=== PATIENT | female | born 1995 | race Caucasian/White ===

== ENCOUNTER 2018-06-15 07:17 | Inpatient (IN) ==
[2018-06-20] MEDS ORDERED: HYDROCODONE/APAP 5mg/325mg TABLET PO PRN (16:09)
[2018-06-20] MEDS ORDERED: SALINE FLUSH 10ml SYRINGE IV PRN ×2 (16:09)
[2018-06-20] MEDS ORDERED: ACETAMINOPHEN 500 MG TABLET PO PRN (16:09)
[2018-06-20] MEDS ORDERED: MAG-AL + SIM ORAL LIQUID 30ml PO PRN (16:09)
[2018-06-20] MEDS ORDERED: ZOLPIDEM 5 MG TABLET PO PRN (16:09)
[2018-06-20] MEDS ORDERED: METHYLERGONOVINE 0.2 MG/ML INJECTION IM PRN (16:09)
[2018-06-20] MEDS ORDERED: CALCIUM CARBONATE Chewable 500mg TABLET PO PRN (16:09)
[2018-06-20] MEDS ORDERED: CARBOPROST 250 MCG/ML INJECTION IM PRN (16:09)
--- OUTSIDE RECORDS SUMMARY | 2018-06-20 16:11 | External Medical Summary | Continuity of Care Document ---
:1995 Author Organization [facility] Address [address] [place], [place] [id number] Phone Care Team Providers Name Role Phone Kaylah Ruiz DO Unavailable Unavailable Allergies, Adverse Reactions, Alerts Substance Reaction Severity Status tetracycline Unknown Active Medications Medication Instructions Dosage Effective Dates Status Comments (start - stop) Vitamin take 1 tablet by Not Available - Active tablet oral route every day Problems Condition Effective Dates (start - stop) Clinical Status Encntr for suprvsn of normal first - preg, third trimester 37 weeks gestation of - Encntr for suprvsn of normal first - preg, second trimester 15 weeks gestation of - Partial Placenta Previa Nos Or W/out - Hemorrhage, Unspec Trimester Encntr for suprvsn of normal first - preg, second trimester 19 weeks gestation of - Partial Placenta Previa Nos Or W/out - Hemorrhage, Second Trimester 23 weeks gestation of - Streptococcus B carrier state - complicating Encntr for suprvsn of normal first - preg, third trimester 39 weeks gestation of - Streptococcus B carrier state - complicating Encntr for suprvsn of normal first - preg, third trimester 35 weeks gestation of - Streptococcus B carrier state - complicating Encntr for suprvsn of normal first - preg, third trimester 36 weeks gestation of - Streptococcus B carrier state - complicating Encntr for suprvsn of normal first - preg, third trimester 38 weeks gestation of - Encntr screen for infections w sexl - mode of transmiss Encounter for screening for oth - infec/parastc diseases Encntr for suprvsn of normal first - preg, first trimester Encounter for screening of - mother 11 weeks gestation of - Encntr for suprvsn of normal first - preg, second trimester 19 weeks gestation of - Encntr for suprvsn of normal first - preg, second trimester 27 weeks gestation of - Encntr for suprvsn of normal first - preg, second trimester 23 weeks gestation of - Encntr for suprvsn of normal first - preg, third trimester 31 weeks gestation of - Encntr for suprvsn of normal first - preg, third trimester 29 weeks gestation of - Encntr for suprvsn of normal first - preg, third trimester 33 weeks gestation of - Encntr for suprvsn of normal preg, unsp, first trimester Procedures Procedure Date OB Visit No Charge Results Test Name Date and Time Measure Units Reference Range Abnormal Flag Comments Unknown Advance Directives Directive Yes / No Effective Date File Name Unknown Encounters Encounter Practice Location Reason(s) Diagnoses Date Provider Care Team Description For Visit Members Associates Kumar Streptococcus B Sobbing Referring In Womens carrier state 9-201 Jones. Provider: Darryl HALL, complicating [address] pregnancyEncntr [facility] [place], 1522, for suprvsn of Center [address], [address], [place], preg, third [address], [id number], [email or web address] weeks 120, [place], [place] gestation of [place], [address]. tel:+214 [place], tel:+ [phone], [id number] [place]. tel: [phone] Associates Kumar Streptococcus B May-1 Sobbing Referring In Womens carrier state 2 Jones. Provider: Darryl HALL, complicating 8 [address] Box [facility], 1522, for suprvsn of Center [address], normal [address], St [place], preg, third [address], [id number], weeks 120, [place], [place], [address]. tel:+316 [place], tel:[phone], [id number] [place]. tel: [phone] Associates Kumar Encntr for May-0 Sobbing Referring In Womens suprvsn of [place] 5 Jones. Provider: Darryl HALL, first preg, third 8 [address] Box [email or web address] weeks Medical [facility], 1522, gestation of Center [address], [address], [place], [address], [id number], 120, [place], [place], [address]. tel:+ [place], tel:[phone], [id number] [place]. tel: [phone] Associates Kumar Streptococcus B Geovanny-2 Sobbing Referring In Womens carrier state Jones. Provider: Darryl HALL, complicating [address] Box [facility], 1522, for suprvsn of Center [address], normal [address], St [place], preg, third [address], [id number], [id number] weeks 120, [place], [place], [address]. tel:+316 [place], tel:[phone], [id number] [place]. tel: [phone] Associates Kumar Streptococcus B Apr-2 Sobbing Referring In Womens carrier state Jones. Provider: Darryl HALL, complicating 8 [address] [facility], for supr[facility]n of Center [address], normal [address], St [place], preg, third [address], [id number], [email or web address] weeks 120, [place], [place] gestation of [place], [address]. tel: [place], tel:+ [phone], [id number] [place]. tel:[phone] Ailyn [place] Encntr for Geovanny-0 Sobbing Referring In Womens suprvsn of normal 7-201 Louis. Provider: Darryl HALL, first preg, third 8 [address] PO Box [email or web address] weeks [facility], 1522, gestation of [place] [address], [facility], [address], [id number], 120, [place], [place], [address]. tel:+ [place], tel:+ [phone], [id number] [place]. tel: [phone] Ailyn [place] Encntr for May-2 Sobbing Referring In Womens suprvsn of normal 4-201 Louis. Provider: Darryl HALL, first preg, third 8 [address] PO Box weeks [facility], 1522, gestation of [place] [address], [facility], [facility], [address], [id number], 120, [place], [place], [address]. tel: [place], tel:+ [phone], [id number] [place]. tel: [phone] Ailyn [place] Encntr for May-1 Sobbing Referring In Womens suprvsn of normal 0-201 Louis. Provider: Darryl HALL, first preg, third 8 [address] PO Box [email or web address] weeks [facility], 1522, gestation of [place] [address], [facility], [facility], [address], [id number], 120, [place], [place], [place], [address]. tel:+ [place], tel:[phone], [id number] [place]. tel: [phone] Ailyn [place] Encntr for Apr-2 Sobbing Referring In Womens suprvsn of normal 6-201 Louis. Provider: Darryl HALL, first preg, 8 [address] PO Box second [facility], 1522, [email or web address] weeks Center [address], gestation of Drive [place], [address], [id number], 120, [place], [place], [address]. tel: [place], tel: [phone], [id number] [place]. tel: [phone] Associates Kumar Ontiverosntr for Mar-2 Sobbing Referring In Womens suprvsn of normal 9-201 Louis. Provider: Darryl HALL, first preg, 8 [address] PO Box [facility], 1522, [email or web address] weeks Center [address], gestation of [facility] [place], [address], [id number], 120, [place], [place], [address]. tel: [place], tel: [phone], [id number] [place]. tel: [phone] Associates Kumar Partial Placenta Mar-2 Sobbing Referring In Womens Ultrasound Previa Nos Or 9-201 Louis. Provider: Darryl HALL, W/out Hemorrhage, 8 [address] PO Box [facility], 1522, [id number] weeks Center [address], gestation of [facility] [place], [address], [id number], 120, [place], [place], [address]. tel: [place], tel: [phone], [id number] [place]. tel: [phone] Associates Kumar Partial Placenta Mar-0 Sobbing Referring In Womens Previa Nos Or 1-201 Louis. Provider: Darryl HALL, W/out Hemorrhage, 8 [address] PO Box [facility], 1522, TrimesterEncntr Center [address], for suprvsn of [facility] [place], normal first [address], [id number], preg, second 120, [place], [place] [id number] weeks [place], [address]. tel: gestation of [place], tel: [phone], [id number] [place]. tel: [phone] Associates Kumar Encntr for Mar-0 Sobbing Referring In Womens Ultrasound suprvsn of normal 1-201 Jones. Provider: Darryl HALL, first preg, 8 700 [facility], 1522, [email or web address] weeks Center [address], gestation of [facility], [facility], [address], , 120, [address], [place], [address]. tel: [place], tel: [phone], [id number] [place]. tel: [phone] Ailyn [place] Encntr for Feb-0 Sobbing Referring In Womens suprvsn of normal 1-201 Jones. Provider: Darryl HALL, first preg, 8 700 [facility], 1522, [id number] weeks Center [address], gestation of [facility], [place], [address], , 120, [address], [place], [address]. tel: [place], tel: [phone], [id number] [place]. tel: [phone] Ailyn [place] Encntr screen for Eladio-0 Sobbing Referring In Womens infections w sexl 4-201 Jones. Provider: Darryl HALL, mode of 8 700 [facility] transmissEncounte [facility], 1522, r for screening Center [address], for oth [facility], [place], infec/parastc [address], , diseasesEncntr 120, [address], [place], [address]. tel: normal first [place], tel: preg, first [phone], [id number] trimesterEncounte [place]. r for tel: screening of [id number] weeks gestation of Associates Kumar Encntr for Dec-0 Augustus Referring In Womens suprvsn of normal 4-201 Shante. Provider: Darryl HALL, preg, unsp, first 7 700 [facility] Box [facility], 1522, Center [address], [facility] [place], 120, [address], , [facility], [place], [address]. tel: [phone] tel: , [place]. [id number] tel: [phone] Family History Family Member Diagnosis Age At Onset Father Hypertension Paternal Grandmother Breast Cancer Paternal Grandfather Stroke Mother Hypertension Immunizations Vaccine Date Status Comments Tdap completed Source: New Immunization Record Influenza, injectable, completed Source: Other Provider quadrivalent, preservative free, 3 yrs or older Payers Payer name Insurance type Covered green party ID Authorization(s) [facility] [id number] [facility] [id number] Medicaid [facility] [id number] Social History Type Description Quantity Date Captured Alcohol Use Details No Caffeine Use Details Unknown Tobacco Use Status Smoking Status Former smoker Vital Signs Date / Height Weight BMI Pulse Blood Temperature Respiratory Body Head BMI Time: Rate Pressure Rate Surface Circumference percentile Area 193.70 32.2 138/86 2018 lbs 3 mm[Hg] 11:38 kg/m AM eter (2) Chief Complaint And Reason For Visit Unknown Chief Complaint And Reason For Visit Reason For Referral Reason For Referral Unknown Plan Of Care Date Type Action Status Appointment Maria Luisa Mitchell BOOKED Future Order: Radiology Order Ultrasound, OB Limited ([id number]) Ordered Future Order: Radiology Order Complete OB Ultrasound > 14 Weeks Ordered ([id number]) Date Type Problem Goal Intervention Status Start Date Unknown. History Of Present Illness Encounter Date Complaint History Of Present Illness This patient has no known history of present illness Functional Status Encounter Date Functional Assessment Cognitive Assessment Unknown Medications Administered Medication Instructions Dosage Effective Dates (start - stop) Status Comments Drug Treatment Unknown Instructions Date Instruction Additional Information HIV and other routine tests risk factors identified by history anticipated course of care nutrition and weight gain counseling, special diet toxoplasmosis precautions (cats / raw meat) sexual activity exercise indications for ultrasound influenza vaccine environmental / work hazards travel tobacco (ask, advise, assess, assist and arrange) alcohol illicit / recreational drugs use of any medications (including supplements, vitamins, herbs, OTC drugs) smoking counseling domestic violence seat belt use childbirth classes / hospital facilities hospital registration genetic testing new ob handbook risks
--- OUTSIDE RECORDS SUMMARY | 2018-06-20 16:11 | External Medical Summary | Continuity of Care Document ---
:1996 Author Organization [facility] Address [address] [place], [place] [id number] Phone Care Team Providers Name Role Phone [...] Second Trimester 23 weeks gestation of - Encntr screen for [...] Provider Care Team Description For Visit Members Ailyn Turner for Mar-2 Sobbing Referring In Womens suprvsn of normal [place]. Provider: Darryl HALL, first preg, 8 [address] PO Box [facility], 1522, [id number] weeks Center [address] [place], gestation of [facility] [place], [address], [id number], 120, [place], [place], [address]. tel: [place], tel:[phone], [id number] [place]. tel:[phone] Associates Kumar Partial Placenta Mar-2 Sobbing Referring In Womens Ultrasound Previa Nos Or [place]. Provider: Darryl HALL, W/out Hemorrhage, 8 [address] PO Box [facility], 1522, [id number] weeks Center [address] [place] [place], gestation of [facility] [place], [address], [id number], 120, [place], [place], [address]. tel: [place], tel: [phone], [id number] [place]. tel: [phone] Ailyn [place] Partial Placenta Mar-0 Sobbing Referring In Womens Previa Nos Or Elwell. Provider: Darryl HALL, W/out Hemorrhage, 8 [address] PO Box Count Includes [facility] K, 1522, TrimesterEncntr Center [address] [place] [place], for suprvsn of [facility], normal first [address], [id number], preg, second 120, [place], [place], [address]. tel: gestation of [place], tel: [phone], [phone] [place]. tel: [phone] Ailyn [place] Encntbrennen for Mar-0 Sobbing Referring In Womens Ultrasound suprvsn of normal [place]. Provider: Darryl HALL, first preg, 8 [address] PO Box second [facility] K, 1522, [email or web address] weeks Center [address] [place] [place], gestation of [facility], [address], , 120, [place], [place], [address]. tel: [place], tel: [phone], [id number] [place]. tel: [phone] Ailyn [place] Encntr for Feb-0 Sobbing Referring In Womens suprvsn of normal 1-201 [place]. Provider: Darryl HALL, first preg, 8 [address] PO Box second Medical [facility], 1522, [id number] weeks Center [address] [place] [place], gestation of [facility], [facility], [address], , 120, [place], [place], [address]. tel: [place], tel: [phone], [id number] [place]. tel:[phone] Ailyn [place] Encntr screen for Eladio-0 Sobbing Referring In Womens infections w sexl 4-201 [place]. Provider: Darryl HALL, mode of 8 [address] Box transmissEncounte [facility], 1522, r for screening Center [address] [place], for oth [facility], [place], infec/parastc [address], , diseasesEncntr 120, [place], [place], [address]. tel: normal first [place], tel: preg, first [phone], [id number] trimesterEncounte [place]. r for tel: screening of [phone] [id number] weeks gestation of Associates Kumar Ontiverosntr for Dec-0 Augustus Referring In Womens suprvsn of normal 4-201 Shante. Provider: Darryl HALL, preg, unsp, first 7 [address] PO Box trimester [facility], 1522, Center [address], [facility], [facility], 120, [address], [id number], [place], [place], [address]. tel: [phone] tel: , [place]. [id number] tel:[phone] Family History Family Member Diagnosis Age At Onset Father Hypertension Paternal Grandmother Breast Cancer Paternal Grandfather Stroke Mother Hypertension Immunizations Vaccine Date Status Comments Influenza, injectable, quadrivalent, completed Source: Other Provider preservative free, 3 yrs or older Payers Payer name Insurance type Covered green party ID Authorization(s) [place] BL [id number] Social History Type Description Quantity Date Captured Alcohol Use Details No Caffeine Use Details Unknown Tobacco Use Status Smoking Status Former smoker Vital Signs Date / Height Weight BMI Pulse Blood Temperature Respiratory Body Head BMI Time: Rate Pressure Rate Surface Circumference percentile Area 183.70 30.5 121/2018 lbs 7 mm[Hg] 2:59 kg/m PM eter (2) Chief Complaint And Reason For Visit Unknown Chief Complaint And Reason For Visit Reason For Referral Reason For Referral Unknown Plan Of Care Date Type Action Status Appointment Maria Luisa Goodman BOOKED Future Order: Radiology Order Ultrasound, OB Limited ([id number]) Ordered Future Order: Radiology Order Complete OB Ultrasound > 14 Weeks Ordered ([id number]) Date Type Problem Goal Intervention Status Start [...]
--- OUTSIDE RECORDS SUMMARY | 2018-06-20 16:11 | External Medical Summary | Continuity of Care Document ---
:1996 Author Organization [email or web address] Address [address] [place], [place] [phone] Phone Care Team Providers Name Role Phone [...] preg, unsp, first trimester Procedures Procedure Date Immuniz admnin, 1 vac, sngl/combo 19 Yrs + TDAP VACCINE >7 IM OB Visit No Charge Automated hemogram (CBC) Glucose test Venpnctr fngr/heel/ear stick routne Results Test Name Date and Time Measure Units Reference Range Abnormal Flag Comments Panel Description: CBC With Differential/Platelet WBC 14:36:00 10.7 x10E3/uL 3.4-10.8 RBC 14:36:00 4.19 x10E6/uL 3.77-5.28 Hemoglobin 14:36:00 12.1 g/dL 11.1-15.9 Hematocrit 14:36:00 35.8 % 34.0-46.6 MCV 14:36:00 85 fL 79-97 MCH 14:36:00 28.9 pg 26.6-33.0 MCHC 14:36:00 33.8 g/dL 31.5-35.7 RDW 14:36:00 13.0 % 12.3-15.4 Platelets 14:36:00 256 x10E3/uL 150-379 Neutrophils 14:36:00 69 % Not Estab. Lymphs 14:36:00 22 % Not Estab. Monocytes 14:36:00 6 % Not Estab. Eos 14:36:00 2 % Not Estab. Basos 14:36:00 0 % Not Estab. Immature Cells 14:36:00 Neutrophils (Absolute) 14:36:00 7.5 x10E3/uL 1.4-7.0 H Lymphs (Absolute) 14:36:00 2.3 x10E3/uL 0.7-3.1 Monocytes(Absolute) 14:36:00 0.6 x10E3/uL 0.1-0.9 Eos (Absolute) 14:36:00 0.2 x10E3/uL 0.0-0.4 Baso (Absolute) 14:36:00 0.0 x10E3/uL 0.0-0.2 Immature Granulocytes 14:36:00 1 % Not Estab. Immature Grans (Abs) 14:36:00 0.1 x10E3/uL 0.0-0.1 NRBC 14:36:00 Hematology Comments: 14:36:00 Panel Description: Glucose [Mass/volume] in Serum or Plasma --1 hour post 50 g glucose PO Gestational Diabetes Screen 14:36:00 101 mg/dL 65-135 Advance Directives Directive Yes / No Effective Date File Name Unknown Encounters Encounter Practice Location Reason(s) Diagnoses Date Provider Care Team Description For Visit Members Ailyn [place] Encntr for Sobbing Referring In Womens suprvsn of normal 0-201 Louis. Provider: Darryl HALL, first preg, third 8 [address] Box [id number] weeks [facility], 1522, gestation of [place] [address], [address], [facility], [address], , 120, [place], [place], [address]. tel: [place], tel: [phone], [id number] [place]. tel: [phone] Ailyn [place] Encntr for Sobbing Referring In Womens suprvsn of normal 6-201 Louis. Provider: Darryl HALL, first preg, 8 [address] PO Box second [facility], 1522, [id number] weeks Center [address], gestation of Drive, [facility], [address], [id number], 120, [place], [place], [address]. tel: [place], tel: [phone], [id number] [place]. tel: [phone] Associates Kumar Encntr for Mar-2 Sobbing Referring In Womens suprvsn of normal [place]. Provider: Darryl HALL, first preg, 8 [address] PO Box [facility] , 1522, [email or web address] weeks Center [address], gestation of [place], [address], [id number], 120, [place], [place], [address]. tel: [place], tel:[phone], [id number] [place]. tel: [phone] Associates Kumar Partial Placenta Mar-2 Sobbing Referring In Womens Ultrasound Previa Nos Or Louis. Provider: Darryl HALL, W/out Hemorrhage, 8 [address] PO Box [facility] , 1522, [id number] weeks Center [address], gestation of [place], [address], [id number], 120, [place], [place], [address]. tel: [place], tel:[phone], [id number] [place]. tel: [phone] Associates Kumar Partial Placenta Mar-0 Sobbing Referring In Womens Previa Nos Or Louis. Provider: Darryl HALL, W/out Hemorrhage, 8 [address] PO Box [facility] , 1522, TrimesterEncntr Center [address], for suprvsn of Drive, [place], normal first [address], [id number], preg, second 120, [place], [place] [id number] [place], [address]. tel: gestation of [place], tel:[phone], [id number] [place]. tel: [phone] Associates Kumar Encntr for Mar-0 Sobbing Referring In Womens Ultrasound suprvsn of normal [place]. Provider: Darryl HALL, first preg, 8 [address] PO Box [facility] , 1522, [id number] weeks Center [address], gestation of [place], [address], [id number], 120, [place], [place], [address]. tel: [place], tel: [phone], [phone] [place]. tel: [phone] Ailyn [place] Encntr for Feb-0 Sobbing Referring In Womens suprvsn of normal 1-201 [place]. Provider: Darryl HALL, first preg, 8 [address] PO Box second Medical [facility], 1522, [id number] weeks Center [address], gestation of [facility], [facility], [address], , 120, [place], [place], [address]. tel: [place], tel:[phone], [id number] [place]. tel: [phone] Ailyn [place] Encjeremiah screen for Eladio-0 Sobbing Referring In Womens infections w sexl 4-201 [place]. Provider: Darryl HALL, mode of 8 [address] Box transmissEncounte [facility], 1522, r for screening Center [address], for oth Drive, [place], infec/parastc [address], , diseasesEncntr 120, [place], [place], [address]. tel: normal first [place], tel: preg, first [phone], [id number] trimesterEncounte [place]. r for tel: screening of [id number] weeks gestation of Associates Kumar Turner for Dec-0 Augustus Referring In Womens suprvsn of normal 4-201 [place]. Provider: Darryl HALL, preg, unsp, first 7 [address] Box trimester Medical [facility], 1522, Center [address], [facility] St [place], 120, [address], [id number], [place], [place], [address]. tel:[phone] tel: , . [id number] tel: [phone] Family History Family Member Diagnosis Age At Onset Father Hypertension Paternal Grandmother Breast Cancer Paternal Grandfather Stroke Mother Hypertension Immunizations Vaccine Date Status Comments Tdap completed Source: New Immunization Record Influenza, injectable, completed Source: Other Provider quadrivalent, preservative free, 3 yrs or older Payers Payer name Insurance type Covered democrat ID Authorization(s) [facility] [id number] [facility] [id number] Social History Type Description Quantity Date Captured Alcohol Use Details No Caffeine Use Details Unknown Tobacco Use Status Smoking Status Former smoker Vital Signs Date / Height Weight BMI Pulse Blood Temperature Respiratory Body Head BMI Time: Rate Pressure Rate Surface Circumference percentile Area 186.10 30.9 -2018 lbs 6 1:36 kg/m PM eter (2) 186.10 30.9 133/90 -2018 lbs 6 mm[Hg] 1:37 kg/m PM eter (2) Chief Complaint And Reason For Visit Unknown Chief Complaint And Reason For Visit Reason For Referral Reason For Referral Unknown Plan Of Care Date Type Action Status Appointment Maria Luisa Goodman BOOKED Future Order: Radiology Order Ultrasound, OB Limited ([id number]) Ordered Future Order: Radiology Order Complete OB Ultrasound > 14 Weeks Ordered ([id number]) Date Type Problem Goal Intervention Status Start [...]
--- OUTSIDE RECORDS SUMMARY | 2018-06-20 16:11 | External Medical Summary | Continuity of Care Document ---
:1996 Author Organization [facility] [employer] [facility] Address [address] [place], [place] [id number] Phone Care Team Providers Name Role Phone Kaylah Ruiz DO Unavailable Unavailable Allergies, Adverse Reactions, Alerts Substance Reaction Severity Status tetracycline Unknown Active Medications Medication Instructions Dosage Effective Dates Status Comments (start - stop) Vitamin take 1 tablet by Not Available - Active tablet oral route every day Problems Condition Effective Dates (start - stop) Clinical Status Streptococcus B carrier state - complicating Encntr for suprvsn of normal first - preg, third trimester 36 weeks gestation of - Encntr for suprvsn [...] Care Team Description For Visit Members Ailyn Verde Sobbing Referring In Womens [facility] 2 Dolphin. Provider: Darryl HALL, complicating 8 [address] PO Box pregnancyEncntr Medical [facility] [place], 1522, for suprvsn of Center [address] [place], normal [address], [place], preg, third [address], [id number], [email or web address] weeks 120, [place], [place] gestation of [place], [address]. tel:+ [place], tel:+ [phone], [id number] [place]. tel: [phone] Ailyn [place] Encntr for Sobbing Referring In Womens suprvsn of normal 5-201 Dolphin. Provider: Darryl HALL, first preg, third 8 700 [address] PO Box [email or web address] weeks [facility], 1522, gestation of Center [address] [place], [address], St [place], [address], [id number], 120, [place], [place], [address]. tel:+ [place], tel:+ [phone], [id number] [place]. tel: [phone] Associates Kumar Streptococcus B Geovanny-2 Sobbing Referring In Womens carrier state 8-201 Dolphin. Provider: Darryl HALL, complicating 8 [address] PO Box pregnancyEncntr [facility], 1522, for suprvsn of Center [address] [place], normal first [address], St [place], preg, third Suite [address], [id number], [email or web address] weeks 120, [place], [place], [address]. tel: [place], tel:[phone], [id number] [place]. tel: [phone] Associates Kumar Streptococcus B Geovanny-2 Sobbing Referring In Womens carrier [facility] 1-201 Dolphin. Provider: Darryl HALL, complicating 8 [address] PO Box pregnancyEncntr [facility], 1522, for suprvsn of Center [address] [place], normal first [address], St [place], preg, third [address], , [email or web address] weeks 120, [place], [place], [address]. tel:+ [place], tel:[phone], [id number] [place]. tel: [phone] Associates Kumar Turner for Geovanny-0 Sobbing Referring In Womens suprvsn of normal 7-201 Dolphin. Provider: Darryl HALL, first preg, third 8 700 [address] PO Box [email or web address] weeks [facility], 1522, gestation of Center [address], [address], St [place], [address], [id number], 120, [place], [place], [address]. tel:+ [place], tel:[phone], [id number] [place]. tel: [phone] Ailyn [place] Encntr for May-2 Sobbing Referring In Womens suprvsn of normal 4-201 Louis. Provider: Darryl HALL, first preg, third 8 700 [address] PO Box [id number] weeks [facility], 1522, gestation of Center [address], [address], [place], Suite [address], [id number], 120, [place], [place], [address]. tel: [place], tel: [phone], [id number] [place]. tel: [phone] Ailyn [place] Encntr for May-1 Sobbing Referring In Womens suprvsn of normal 0-201 Louis. Provider: Darryl HALL, first preg, third 8 700 [address] PO Box [email or web address] weeks [facility], 1522, gestation of Center [address], [address], [place], [address], [id number], 120, [place], [place], [address]. tel: [place], tel:+ [phone], [id number] [place]. tel: [phone] Ailyn [place] Encntr for Apr-2 Sobbing Referring In Womens suprvsn of normal 6-201 Louis. Provider: Darryl HALL, first preg, 8 700 [address] PO Box [facility], 1522, [email or web address] weeks Center [address], gestation of Drive, [place], Suite [address], [id number], 120, [place], [place], [address]. tel: [place], tel: [phone], [id number] [place]. tel: [phone] Ailyn [place] Encntr for Mar-2 Sobbing Referring In Womens suprvsn of normal 9-201 Louis. Provider: Darryl HALL, first preg, 8 700 [address] PO Box [facility], 1522, weeks Center [address], gestation of Drive, [place], Suite [address], [id number], 120, [place], [place], [address]. tel: [place], tel: [phone], [id number] [place]. tel: [phone] Associates Kumar Partial Placenta Mar-2 Sobbing Referring In Womens Ultrasound Previa Nos Or Dolphin. Provider: Darryl HALL, W/out Hemorrhage, 8 [address] PO Box [facility] 1522, [id number] weeks Center [address], gestation of [place], Suite [address], [id number], 120, [place], [place], [address]. tel: [place], tel:[phone], [id number] [place]. tel: [phone] Associates Kumar Partial Placenta Mar-0 Sobbing Referring In Womens Previa Nos Or Dolphin. Provider: Darryl HALL, W/out Hemorrhage, 8 [address] PO Box [facility], 1522, TrimesterEncntr Center [address], for suprvsn of [place], normal first Suite [address], , preg, second 120, [place], [place] [email or web address] [place], [address]. tel: gestation of [place], tel: [phone], [id number] [place]. tel: [phone] Associates Kumar Ontiverosntr for Mar-0 Sobbing Referring In Womens Ultrasound suprvsn of normal Dolphin. Provider: Darryl HALL, first preg, 8 700 [address] PO Box [facility], 1522, [id number] weeks Center [address] [place] [address], gestation of [place], Suite [address], [id number], 120, [place], [place], [address]. tel: [place], tel:[phone], [id number] [place]. tel: [phone] Associates Kumar Encntr for Feb-0 Sobbing Referring In Womens suprvsn of normal Dolphin. Provider: Darryl HALL, first preg, 8 [address] PO Box [facility], 1522, [email or web address] weeks Center [address] [place], gestation of [place], Suite [address], [id number], 120, [place], [place], [address]. tel: [place], tel: [phone], [id number] [place]. tel: [phone] Associates Kumar Turner screen for Eladio-0 Sobbing Referring In Womens infections w sexl 4-201 Louis. Provider: Darryl HALL, mode of 8 [address] PO Box transmissEncounte [facility], 1522, r for screening Center [address], [facility], infec/parastc [address], [id number], diseasesEncntr 120, [facility] [place], [address]. tel: normal first [place], tel: preg, first [phone], [id number] trimesterEncounte [place]. r for tel: screening of [phone] [id number] weeks gestation of Associates Kumar Turner for Dec-0 Augustus Referring In Womens suprvsn of normal 4-201 Shante. Provider: Darryl HALL, nicolás, unsp, first 7 700 [address] PO Box trimester [facility], 1522, Center [address] [place], [facility] St [place], 120, [address], [id number], [place], [facility] [place], [address]. tel: [phone] tel: , [place]. [id number] tel: [phone] Family History Family Member Diagnosis Age At Onset Father Hypertension Paternal Grandmother Breast Cancer Paternal Grandfather Stroke Mother Hypertension Immunizations Vaccine Date Status Comments Tdap completed Source: New Immunization Record Influenza, injectable, completed Source: Other Provider quadrivalent, preservative free, 3 yrs or older Payers Payer name Insurance type Covered democrat ID Authorization(s) [facility] [id number] [facility] [id number] Medicaid [facility] [id number] Social History Type Description Quantity Date Captured Alcohol Use Details No Caffeine Use Details Unknown Tobacco Use Status Smoking Status Former smoker Vital Signs Date / Height Weight BMI Pulse Blood Temperature Respiratory Body Head BMI Time: Rate Pressure Rate Surface Circumference percentile Area 195.40 32.5 125/82 2018 lbs 1 mm[Hg] 4:14 kg/m PM eter (2) 31.9 8 4:04 kg/m PM eter (2) Chief Complaint And Reason For Visit Unknown Chief Complaint And Reason For Visit Reason For Referral Reason For Referral Unknown Plan Of Care Date Type Action Status Future Order: Radiology Order Ultrasound, OB Limited ([id number]) Ordered Future Order: Radiology Order Complete OB Ultrasound > 14 Weeks Ordered ([id number]) Date Type Problem Goal Intervention Status Start [...]
--- OUTSIDE RECORDS SUMMARY | 2018-06-20 16:11 | External Medical Summary | Continuity of Care Document ---
:1996 Author Organization [facility] [facility] Address [address] [place], [place] [id number] Phone Care Team Providers Name Role Phone Kaylah Ruiz DO Unavailable Allergies, Adverse Reactions, Alerts Substance Reaction Severity Status tetracycline Unknown Active Medications Medication Instructions Dosage Effective Dates Status Comments (start - stop) Vitamin take 1 tablet by Not Available - Active tablet oral route every day Problems Condition Effective Dates (start - stop) Clinical Status Partial Placenta Previa Nos Or W/out - Hemorrhage, Unspec Trimester Encntr for suprvsn of normal first - preg, second trimester 19 weeks gestation of - Encntr for suprvsn of normal first - preg, second trimester 15 weeks gestation of - Encntr screen for [...] Team Description For Visit Members Associates Kumar Partial Placenta Mar-0 Sobbing Referring In Womens Previa Nos Or [place]. Provider: Darryl HALL, W/out Hemorrhage, 8 [address] PO Box [facility]22, TrimesterEncntr Center [address] [place], for suprvsn of [facility], [place], normal first Suite [address], [id number], preg, second 120, [place], [place] [email or web address] [place], [address]. tel: gestation of [place], tel: [phone], [id number] [place]. tel: [phone] Associates Kumar Solorzanor for Mar-0 Sobbing Referring In Womens Ultrasound suprvsn of normal [place]. Provider: Darryl HALL, first preg, 8 [address] PO Box second Medical [facility] K, 1522, [id number] weeks Center [address] [place], gestation of [facility] [place], Suite [address], , 120, [place], [place], [address]. tel: [place], tel:[phone], [id number] [place]. tel: [phone] Ailyn Turner for Feb-0 Sobbing Referring In Womens suprvsn of normal [place]. Provider: Darryl HALL, first preg, 8 [address] PO Box second [facility], 1522, [email or web address] weeks Center [address] [place], gestation of [facility] [place], Suite [address], , 120, [place], [place], [address]. tel: [place], tel:[phone], [id number] [place]. tel: [phone] Ailyn Turner screen for Eladio-0 Sobbing Referring In Womens infections w sexl [place]. Provider: Darryl HALL, mode of 8 [address] PO Box transmissEncounte Medical Ruiz K, 1522, r for screening Center [address] [place], for oth [facility], [place], infec/parastc [address], , diseasesEncntr 120, [place], [place], [address]. tel:[phone] normal first [place], tel: preg, first [phone], [id number] trimesterEncounte [place]. r for tel: screening of [id number] weeks gestation of Associates Kumar Encntr for Augustus Referring In Womens suprvsn of normal 4-201 Shante. Provider: Health [place], preg, unsp, first 7 [address] PO Box trimester Medical [facility] K, 1522, Center [address] [place], [address] [place], 120, [address], [id number], [place], [address]. tel: [phone] tel: , [place]. [id number] tel: [phone] Family History Family Member Diagnosis Age At Onset Father Hypertension Paternal Grandmother Breast Cancer Paternal Grandfather Stroke Mother Hypertension Immunizations Vaccine Date Status Comments Influenza, injectable, quadrivalent, completed Source: Other Provider preservative free, 3 yrs or older Payers Payer name Insurance type Covered green party ID Authorization(s) [facility] [id number] Social History Type Description Quantity Date Captured Alcohol Use Details No Caffeine Use Details Unknown Tobacco Use Status Smoking Status Former smoker Vital Signs Date / Height Weight BMI Pulse Blood Temperature Respiratory Body Head BMI Time: Rate Pressure Rate Surface Circumference percentile Area 177.50 29.5 133/85 2018 lbs 3 mm[Hg] 4:21 kg/m PM eter (2) Chief Complaint And Reason For Visit Unknown Chief Complaint And Reason For Visit Reason For Referral Reason For Referral Unknown Plan Of Care Date Type Action Status Appointment Maria Luisa Goodman BOOKED Appointment Maria Luisa Goodman BOOKED Future Order: Radiology Order Complete OB Ultrasound > 14 Weeks Ordered ([id number]) Date Type Problem Goal Intervention Status Start [...]
--- OUTSIDE RECORDS SUMMARY | 2018-06-20 16:11 | External Medical Summary | Continuity of Care Document ---
:1996 Author Organization [facility] [employer] [facility] Address [address] [place], [place] [phone] Phone Care Team Providers Name Role Phone [...] trimester 19 weeks gestation of - Encntr screen for infections w sexl - mode of transmiss Encounter for screening for oth - infec/parastc diseases Encntr for suprvsn of normal first - preg, first trimester Encounter for screening of - mother 11 weeks gestation of - Encntr for suprvsn of normal preg, unsp, first trimester Procedures Procedure Date Ultrasound exam of preg uterus, complete Results Test Name Date and Time Measure Units Reference Range Abnormal Flag Comments Unknown Advance Directives Directive Yes / No Effective Date File Name Unknown Encounters Encounter Practice Location Reason(s) Diagnoses Date Provider Care Team Description For Visit Members Associates Kumar Partial Placenta Mar-0 Sobbing Referring In Womens Previa Nos Or Harris. Provider: Darryl HALL, W/out Hemorrhage, 8 [address] PO Box [facility] 1522, TrimesterEncntr Center [address], for suprvsn of [facility], [place], normal first [address], [id number], preg, second 120, [place], [place], [address]. tel:+ gestation of [place], tel:[phone], [id number] [place]. tel: [phone] Associates Kumar Solorzanor for Mar-0 Sobbing Referring In Womens Ultrasound suprvsn of normal Harris. Provider: Darryl HALL, first preg, 8 [address] PO Box second Medical [facility], 1522, [id number] weeks Center [address], gestation of [facility], [address], , 120, [place], [place], [address]. tel: [place], tel:[phone], [id number] [place]. tel: [phone] Ailyn Turner for Feb-0 Sobbing Referring In Womens suprvsn of normal Harris. Provider: Darryl HALL, first preg, 8 [address] PO Box second [facility], 1522, [id number] weeks Center [address], gestation of [facility], Suite [address], , 120, [place], [place], [address]. tel: [place], tel:[phone], [id number] [place]. tel:[phone] Ailyn Turner screen for Eladio-0 Sobbing Referring In Womens infections w sexl Harris. Provider: Darryl HALL, mode of 8 [address] PO Box transmissEncounte Medical Ruiz K, 1522, r for screening Center [address], for oth [facility], [place], infec/parastc [address], , diseasesEncntr 120, [place], [place], [address]. tel: normal first [place], tel: preg, first [address], [id number] trimesterEncounte [place]. r for tel: screening of [phone] [id number] weeks gestation of Associates Kumar Encntr for Oct- Augustus Referring In Womens suprvsn of normal 4-201 Shante. Provider: Health ISABEL, preg, unsp, first 7 700 [address] PO Box trimester Medical Ruiz K, 1522, Center [address] [place], [address] [place], 120, [address], [id number], [place], [facility] [place], [address]. tel: [phone] tel: , . [id number] tel: [phone] Family History Family Member Diagnosis Age At Onset Father Hypertension Paternal Grandmother Breast Cancer Paternal Grandfather Stroke Mother Hypertension Immunizations Vaccine Date Status Comments Influenza, injectable, quadrivalent, completed Source: Other Provider preservative free, 3 yrs or older Payers Payer name Insurance type Covered alliance party ID Authorization(s) [facility] [id number] Social History Type Description Quantity Date Captured Unknown Vital Signs Date / Height Weight BMI Pulse Blood Temperature Respiratory Body Head BMI Time: Rate Pressure Rate Surface Circumference percentile Area Unknown Chief Complaint And Reason For Visit Unknown Chief Complaint And Reason For Visit Reason For Referral Reason For Referral Unknown Plan Of Care Date Type Action Status Appointment Maria Luisa Goodman BOOKED Appointment Maria Luisa Goodman BOOKED Future Order: Radiology Order Complete OB Ultrasound > 14 Weeks Ordered ([id number]) Date Type Problem Goal Intervention Status Start [...]
--- OUTSIDE RECORDS SUMMARY | 2018-06-20 16:11 | External Medical Summary | Continuity of Care Document ---
:1996 Author Organization [facility] [employer] [facility] Address [address] [place], [place] [phone] Phone Care Team Providers Name Role Phone [...] Trimester 23 weeks gestation of - Encntr for [...] preg, unsp, first trimester Procedures Procedure Date Ultrasnd exam, preg uterus, limited Results Test Name Date and Time Measure Units Reference Range Abnormal Flag Comments Unknown Advance Directives Directive Yes / No Effective Date File Name Unknown Encounters Encounter Practice Location Reason(s) Diagnoses Date Provider Care Team Description For Visit Members Ailyn Turner for Mar-2 Sobbing Referring In Womens suprvsn of normal [place]. Provider: Darryl HALL, first preg, 8 [address] PO Box [facility] , 1522, [id number] weeks Center [address] [place], gestation of [place], [address], [id number], 120, [place], [place], [address]. tel: [place], tel: [phone], [id number] [place]. tel: [phone] Associates Kumar Partial Placenta Mar-2 Sobbing Referring In Womens Ultrasound Previa Nos Or [place]. Provider: Darryl HALL, W/out Hemorrhage, 8 [address] PO Box [facility] , 1522, [id number] weeks Center [address] [place], gestation of [place], [address], [id number], 120, [place], [place], [address]. tel: [place], tel: [phone], [id number] [place]. tel: [phone] Associates Kumar Partial Placenta Mar-0 Sobbing Referring In Womens Previa Nos Or [place]. Provider: Darryl HALL, W/out Hemorrhage, 8 [address] PO Box [facility], 1522, TrimesterEncntr Center [address] [place], for suprvsn of [place], normal first [address], [id number], preg, second 120, [place], [place] [id number] weeks [place], [address]. tel: gestation of [place], tel: [phone], [id number] [place]. tel: [phone] Ailyn Ontiverosntbrennen for Mar-0 Sobbing Referring In Womens Ultrasound suprvsn of normal [place]. Provider: Darryl HALL, first preg, 8 700 [address] PO Box [facility], 1522, [email or web address] weeks Center [address] [place], gestation of [facility], [facility], [address], , 120, [place], [place], [address]. tel: [place], tel: [phone], [id number] [place]. tel: [phone] Ailyn Heath Encntr for Feb-0 Sobbing Referring In Womens suprvsn of normal 1-201 [place]. Provider: Darryl HALL, first preg, 8 [address] [facility], 1522, [id number] weeks Center [address] [place], gestation of [facility], [facility], [address], , 120, [place], [place], [address]. tel: [place], tel: [phone], [id number] [place]. tel:[phone] Ailyn Heath Encntr screen for Eladio-0 Sobbing Referring In Womens infections w sexl 4-201 [place]. Provider: Darryl HALL, mode of 8 [address] [facility] transmissEncounte [facility], 1522, r for screening Center [address] [place], for oth [facility], [place], infec/parastc [address], , diseasesEncntr 120, [place], [place], [address]. tel: normal first [place], tel: preg, first 79[address], [id number] trimesterEncounte [place]. r for tel: screening of [phone] [id number] weeks gestation of Associates Kumar Encntr for Dec-0 Augustus Referring In Womens suprvsn of normal 4-201 Shante. Provider: Darryl HALL, preg, unsp, first 7 700 [facility], 1522, Center [address], [email or web address] St [place], 120, [address], , Kumar [place], [facility] [place], [address]. tel: [phone] tel: , [place]. [id number] tel:[phone] Family History Family Member Diagnosis Age At Onset Father Hypertension Paternal Grandmother Breast Cancer Paternal Grandfather Stroke Mother Hypertension Immunizations Vaccine Date Status Comments Influenza, injectable, quadrivalent, completed Source: Other Provider preservative free, 3 yrs or older Payers Payer name Insurance type Covered alliance party ID Authorization(s) [facility] [id number] Social History Type Description Quantity Date Captured [...] Future Order: Radiology Order Ultrasound, OB Limited ([id number]) Ordered Future Order: Radiology Order Complete OB Ultrasound > 14 Weeks Ordered ([id number]) Date Type Problem Goal Intervention Status Start [...]
--- OUTSIDE RECORDS SUMMARY | 2018-06-20 16:11 | External Medical Summary | Continuity of Care Document ---
:1996 Author Organization [facility] Address [address] [place], [place] [id number] Phone Care Team Providers Name Role Phone [...] preg, unsp, first trimester Procedures Procedure Date Unknown Results Test Name Date and Time Measure Units Reference Range Abnormal Flag Comments Unknown Advance Directives Directive Yes / No Effective Date File Name Unknown Encounters Encounter Practice Location Reason(s) Diagnoses Date Provider Care Team Description For Visit Members Associates Kumar Streptococcus B Sobbing Referring In [facility] 9-201 [place]. Provider: Darryl HALL, complicating 8 [address] PO Box pregnancyEncntr [facility] [place], 1522, for suprvsn of Center [address] [place] [address], [address], [place], preg, third [address], [id number], [id number] weeks 120, [place], gestation of [place], [address]. tel:+9825 [place], tel:[phone] 46178, [id number] [place]. tel: [phone] Associates Kumar Streptococcus B Jose-1 Sobbing Referring In Womens carrier state 2 [place]. Provider: Darryl HALL, complicating [address] [facility], 1522, for suprvsn of Center [address] [place] [address], normal [address], St [place], preg, third Suite [address], [id number], [id number] weeks 120, [place], [place], [address]. tel:+ [place], tel:+ [phone], [id number] [place]. tel: [phone] Associates Kumar Encntr for Jose-0 Sobbing Referring In Womens suprvsn of [facility] [place]. Provider: Darryl HALL, first preg, third 8 700 [place] PO Box [email or web address] weeks [facility], 1522, gestation of Center [address], [address], St [place], [address], [id number], 120, [place], [place], [address]. tel:+ [place], tel:[phone], [id number] [place]. tel: [phone] Associates Kumar Jose-0 Sobbing In Womens [place]. Darryl HALL, 8 700 [facility] 1522, Center [place], [facility], [place], [id number], 120, [place], tel:+ [place], [phone] [address], [place]. tel: [phone] Associates Kumar Streptococcus B Geovanny-2 Sobbing Referring In Womens carrier state [place]. Provider: Darryl HALL, complicating 8 [address] PO Box [facility] , 1522, for suprvsn of Center [address] [place] [address], normal [address], St [place], preg, third [address], [id number], [id number] weeks 120, [place], [place], [address]. tel:+ [place], tel:[phone], [id number] [place]. tel: [phone] Associates Kumar Streptococcus B Geovanny-2 Sobbing Referring In Womens carrier state - [place]. Provider: Darryl HALL, complicating 8 [address] PO Box pregnancyEncntr [facility], 1522, for suprvsn of Center [address] [place] [address], normal [address], St [place], preg, third [address], [id number], [id number] weeks 120, [place], [place], [address]. tel:+ [place], tel:[phone], [id number] [place]. tel: [phone] Ailyn [place] Encntr for Geovanny-0 Sobbing Referring In Womens suprvsn of normal 7-201 [place]. Provider: Darryl HALL, first preg, third 8 700 [address] PO Box [email or web address] weeks [facility], 1522, gestation of Center [address], [address], St [place], [address], [id number], 120, [place], [place], [address]. tel: [place], tel: [phone], [id number] [place]. tel: [phone] Ailyn [place] Encntr for May-2 Sobbing Referring In Womens suprvsn of normal 4-201 [place]. Provider: Darryl HALL, first preg, third 8 700 [address] PO Box [id number] weeks [facility], 1522, gestation of Center [address], [address], St [place], [address], [id number], 120, [place], [place], [address]. tel:+ [place], tel:[phone] 07133, 8136108 [place]. tel: [phone] Ailyn [place] Encntr for May-1 Sobbing Referring In Womens suprvsn of normal 0-201 [place]. Provider: Darryl HALL, first preg, third 8 700 [address] PO Box [id number] weeks [facility], 1522, gestation of Center [address], [address], St [place], [address], [id number], 120, [place], [place], [address]. tel: [place], tel: [phone] 58457, [id number] [place]. tel: [phone] Ailyn [place] Encntr for Apr-2 Sobbing Referring In Womens suprvsn of normal 6201 [place]. Provider: Darryl HALL, first preg, 8 700 [address] PO Box [facility] [place], 1522, [id number] weeks Center [address], gestation of , [place], [address], [id number], 120, [place], [place], [address]. tel: [place], tel: [phone], 7534494 [place]. tel: [phone] Ailyn [place] Encntr for Mar-2 Sobbing Referring In Womens suprvsn of normal 9 [place]. Provider: Darryl HALL, first preg, 8 700 [address] PO Box [facility] Medical [facility], 1522, [id number] weeks Center [address], gestation of [place], [address], [id number], 120, [place], [place], [address]. tel: [place], tel: 47582, [id number] [place]. tel: [phone] Ailyn [place] Partial Placenta Mar-2 Sobbing Referring In Womens Ultrasound Previa Nos Or [place]. Provider: Darryl HALL, W/out Hemorrhage, [address] [facility], [id number] weeks Center [address], gestation of [facility] [place], Suite [address], [id number], 120, [place], [place], [address]. tel: [place], tel: [phone], 6408452 [place]. tel: [phone] Ailyn [place] Partial Placenta Mar-0 Sobbing Referring In Womens Previa Nos Or [place]. Provider: Darryl HALL, W/out Hemorrhage, 8 700 [place] PO Box [facility], 15[facility], TrimesterEncntr Center [address], for suprvsn of Drive, [place], normal first Suite [address], [id number], preg, second 120, [place], [place] [id number] weeks [place], [address]. tel: gestation of [place], tel: [phone], [id number] [place]. tel: [phone] Ailyn [place] Encntr for Mar-0 Sobbing Referring In Womens Ultrasound suprvsn of normal [place]. Provider: Darryl HALL, first preg, 8 700 [address] PO Box [facility], 1522, [id number] weeks Center [address], gestation of [facility] [place], Suite [address], [id number], 120, [place], [place], [address]. tel: [place], tel:[phone], [id number] [place]. tel: [phone] Ailyn [place] Encntr for Feb-0 Sobbing Referring In Womens suprvsn of normal [place]. Provider: Darryl HALL, first preg, 8 700 [address] PO Box [facility], 1522, weeks Center [address], gestation of [facility] [place], Suite [address], [id number], 120, [place], [place], [address]. tel: [place], tel:[phone], [id number] [place]. tel: [phone] Ailyn [place] Encntr screen for Eladio-0 Sobbing Referring In Womens infections w sexl 4-201 [place]. Provider: Darryl HALL, mode of 8 [address] PO Box transmissEncounte [facility], 1522, r for screening Center [address], for oth Drive, [place], infec/parastc Suite [address], , diseasesEncntr 120, [place], [place], [address]. tel: normal first [place], tel: preg, first [phone], [id number] trimesterEncounte [place]. r for tel: screening of [id number] weeks gestation of Associates Kumar Encntr for Dec-0 Augustus Referring In Womens suprvsn of normal 4-201 [place]. Provider: Darryl HALL, preg, unsp, first 7 700 [address] PO Box trimester [facility], 1522, Center [address] [place], [address], 120, [address], [id number], Portia Heath, [facility] [place], [address]. tel: [phone] tel: [phone] , . [id number] tel: [phone] Family History Family Member Diagnosis Age At Onset Father Hypertension Paternal Grandmother Breast Cancer Paternal Grandfather Stroke Mother Hypertension Immunizations Vaccine Date Status Comments Tdap completed Source: New Immunization Record Influenza, injectable, completed Source: Other Provider quadrivalent, preservative free, 3 yrs or older Payers Payer name Insurance type Covered republican ID Authorization(s) [facility] [id number] [facility] [id number] Medicaid [facility] [id number] Social History Type Description Quantity Date Captured [...] Future Order: Radiology Order Ultrasound, OB Limited ([id number]) Ordered Future Order: Radiology Order Complete OB Ultrasound > 14 Weeks Ordered ([id number]) Date Type Problem Goal Intervention Status Start [...]
--- OUTSIDE RECORDS SUMMARY | 2018-06-20 16:11 | External Medical Summary | Continuity of Care Document ---
:1996 Author Organization [facility] Address [address] [place], [place] [id number] Phone Care Team Providers Name Role Phone [...] third trimester 35 weeks gestation of - Encntr for suprvsn [...] trimester 36 weeks gestation of - Encntr screen for [...] Description For Visit Members Ailyn Turner for Sobbing Referring In Womens suprvsn of josephine 5-201 [place]. Provider: Darryl HALL, first preg, third 8 700 [address] PO Box [id number] weeks [facility], 1522, gestation of Center [address], [address], [place], Suite [address], [id number], 120, [place], [place], [address]. tel:+7552 [place], tel:[phone] 43677, 1026994 . tel: [phone] Ailyn Verde Sobbing Referring In Womens carrier state 8-201 [place]. Provider: Darryl HALL, complicating 8 [address] PO Box pregnancyEncntr [facility], 1522, for suprvsn of Center [address], normal first [address] [place], preg, third Suite [address], [id number], [email or web address] weeks 120, [place], [place] gestation of [place], [address]. tel: [place], tel: [phone], [id number] [place]. tel: [phone] Associates Kumar Streptococcus B Geovanny-2 Sobbing Referring In Womens carrier state 1-201 [place]. Provider: Darryl HALL, complicating 8 700 [address] PO Box pregnancyEncntr [facility], 1522, for suprvsn of Center [address], normal first [address], St [place], preg, third Suite [address], [id number], [email or web address] weeks 120, [place], [place] gestation of [place], [address]. tel: [place], tel: 51247, 2790612 [place]. tel: [phone] Associates Kumar Encntr for Geovanny-0 Sobbing Referring In Womens suprvsn of normal 7-201 [place]. Provider: Darryl HALL, first preg, third 8 700 [address] PO Box [id number] weeks [facility], 1522, gestation of Center [address], [address], St [place], Suite [address], [id number], 120, [place], [place], [address]. tel: [place], tel: 46023, 1745868 [place]. tel: [phone] Associates Kumar Ontiverosntr for May-2 Sobbing Referring In Womens suprvsn of normal 4-201 [place]. Provider: Darryl HALL, first preg, third 8 700 [address] PO Box [id number] weeks [facility], 1522, gestation of Center [address], [address], [address] [place], [address], [id number], 120, [place], [place], [address]. tel: [place], tel: 99766, 0393874 [place]. tel: [phone] Associates Kumar Encntr for May-1 Sobbing Referring In Womens suprvsn of normal 0-201 [place]. Provider: Darryl HALL, first preg, third 8 700 [address] PO Box [id number] weeks [facility], 1522, gestation of Center [address], [address], [place], Suite [address], [id number], 120, [place], [place], [address]. tel: [place], tel:+ [phone], [id number] [place]. tel:[phone] Associates Kumar Encntr for Apr-2 Sobbing Referring In Womens suprvsn of normal 6-201 [place]. Provider: Darryl HALL, first preg, 8 700 [address] PO Box [facility] , 1522, [id number] weeks Center [address], gestation of Drive [place], Suite [address], [id number], 120, [place], [place], [address]. tel: [place], tel:+ [phone], 6841511 [place]. tel:[phone] Ailyn [place] Encntr for Mar-2 Sobbing Referring In Womens suprvsn of normal 9-201 [place]. Provider: Darryl HALL, first preg, 8 700 [address] PO Box [facility], 1522, [id number] weeks Center [address], gestation of [facility], Suite [address], [id number], 120, [place], [place], [address]. tel: [place], tel:[phone], [id number] [place]. tel: [phone] Ailyn [place] Partial Placenta Mar-2 Sobbing Referring In Womens Ultrasound Previa Nos Or 9 [place]. Provider: Darryl HALL, W/out Hemorrhage, 8 700 [address] PO Box [facility], 1522, [id number] weeks Center [address], gestation of [facility], [place], Suite [address], [id number], 120, [place], [place], [address]. tel: [place], tel:+ [phone], 6463083 [place]. tel:[phone] Ailyn [place] Partial Placenta Mar-0 Sobbing Referring In Womens Previa Nos Or [place]. Provider: Darryl HALL, W/out Hemorrhage, 8 700 [address] PO Box [facility] , 1522, TrimesterEncntr Center [address], for suprvsn of [facility] [place], normal first Suite [address], , preg, second 120, [place], [place] [id number] [place], [address]. tel: gestation of [place], tel: [phone], [id number] [place]. tel: [phone] Ailyn Solorzanor for Mar-0 Sobbing Referring In Womens Ultrasound suprvsn of normal [place]. Provider: Darryl HALL, first preg, 8 700 [address] PO Box [facility] Medical [facility], 1522, [id number] weeks Center [address], gestation of [facility] [place], Suite [address], , 120, [place], [place], [address]. tel: [place], tel: 68091, 5548267 [place]. tel: [phone] Ailyn Solorzanor for Feb-0 Sobbing Referring In Womens suprvsn of normal [place]. Provider: Darryl HALL, first preg, 8 700 [address] PO Box [facility], 1522, [id number] weeks Center [address], gestation of [facility] [place], Suite [address], , 120, [place], [place], [address]. tel: [place], tel: 54482, [id number] [place]. tel: [phone] Ailyn Solorzanor screen for Eladio-0 Sobbing Referring In Womens infections w sexl 4-201 [place]. Provider: Darryl HALL, mode of 8 700 [address] PO Box transmissEncounte [facility] , 1522, r for screening Center [address], for oth [facility] [place], infec/parastc [address], , diseasesEncntr 120, [place], [place], [address]. tel: normal first [place], tel: preg, first [address], 3535348 trimesterEncounte [place]. r for tel:[phone] screening of [id number] weeks gestation of Associates Kuamr Encgennar for Oct-0 Augustus Referring In Womens suprvsn of normal 4-201 [place]. Provider: Darryl HALL, nicolás, unsp, first 7 700 [address] PO Box trimester Medical [place], 1522, Center [address], [place] [address], 120, [address], [id number], Portia [place], [place], [address]. tel: [phone] tel: [phone] , [place]. [id number] tel: [phone] Family History Family Member Diagnosis Age At Onset Father Hypertension Paternal Grandmother Breast Cancer Paternal Grandfather Stroke Mother Hypertension Immunizations Vaccine Date Status Comments Tdap completed Source: New Immunization Record Influenza, injectable, completed Source: Other Provider quadrivalent, preservative free, 3 yrs or older Payers Payer name Insurance type Covered constitution party ID Authorization(s) [facility] [id number] [facility] [id number] Medicaid [facility] [id number] Social History Type Description Quantity Date Captured Alcohol Use Details No Caffeine Use Details combo Tobacco Use Status Ex-cigarette smoker Smoking Status Former smoker Vital Signs Date / Height Weight BMI Pulse Blood Temperature Respiratory Body Head BMI Time: Rate Pressure Rate Surface Circumference percentile Area .7 8 1:44 kg/m PM eter (2) 192.20 31.9 117/80 2018 lbs 8 mm[Hg] 1:51 kg/m PM eter (2) Chief Complaint And Reason For Visit Unknown Chief Complaint And Reason For Visit Reason For Referral Reason For Referral Unknown Plan Of Care Date Type Action Status Appointment Maria Luisa Mitchell BOOKED Future Order: Radiology Order Ultrasound, OB Limited ([id number]) Ordered Future Order: Radiology Order Complete OB Ultrasound > 14 Weeks Ordered ([id number]) Date Type Problem Goal Intervention Status Start [...]
--- OUTSIDE RECORDS SUMMARY | 2018-06-20 16:12 | External Medical Summary | Continuity of Care Document ---
:1996 Author Organization [facility] [employer] [facility] Address [address] [place], [place] [phone] Phone Care Team Providers Name Role Phone [...] trimester 35 weeks gestation of - Encntr screen for [...] Team Description For Visit Members Ailyn Verde Geovanny-2 Sobbing Referring In Womens [facility] [place]. Provider: Darryl HALL, complicating 8 700 [address] PO Box pregnancyEncntr [facility], 1522, for suprvsn of Center [address] [place], [address], [place], preg, third Suite [address], , [id number] weeks 120, [place], [place] gestation of [place], [address]. tel:+ [place], tel: [phone], 4483261 [place]. tel: [phone] Ailyn Turner for Geovanny-0 Sobbing Referring In Womens suprvsn of normal [place]. Provider: Darryl HALL, first preg, third 8 700 [address] PO Box [id number] weeks Medical [facility], 1522, gestation of [place] [address] [place], Drive, [place], Suite [address], , 120, [place], [place], [address]. tel: [place], tel: [phone] 32794, 7153409 [place]. tel: [phone] Ailyn Turner for March-2 Sobbing Referring In Womens suprvsn of normal 4-201 [place]. Provider: Darryl HALL, first preg, third 8 700 [address] PO Box [id number] weeks Medical [facility], 1522, gestation of Center [address] [place], Drive, [place], Suite [address], , 120, [place], [place], [address]. tel:+ [place], tel:+ [phone], [id number] [place]. tel: [phone] Ailyn [place] Encntr for May-1 Sobbing Referring In Womens suprvsn of normal 0-201 [place]. Provider: Darryl HALL, first preg, third 8 700 [address] PO Box [email or web address] weeks Medical [place] , 1522, gestation of Center [address] [place], Drive, [place], Suite [address], , 120, [place], [place], [address]. tel:+ [place], tel:+ [phone], [id number] [place]. tel: [phone] Ailyn [place] Encntr for Apr-2 Sobbing Referring In Womens suprvsn of normal 6-201 [place]. Provider: Darryl HALL, first preg, 8 700 [address] PO Box second Medical [place] , 1522, [id number] weeks Center [address] [place], gestation of [facility], [place], [address], , 120, [place], [place], [address]. tel:+ [place], tel:[phone] 74487, [id number] [place]. tel: [phone] Ailyn [place] Encntr for Mar-2 Sobbing Referring In Womens suprvsn of normal 9-201 [place]. Provider: Darryl HALL, first preg, 8 700 [address] PO Box second Medical [place] , 1522, [id number] weeks Center [address] [place], gestation of Drive [place], [address], , 120, [place], [place], [address]. tel:+ [place], tel:[phone] 89253, 2526384 [place]. tel: [phone] Ailyn [place] Partial Placenta Mar-2 Sobbing Referring In Womens Ultrasound Previa Nos Or [place]. Provider: Darryl HALL, W/out Hemorrhage, 8 700 [address] PO Box [facility] , 1522, [id number] weeks Center [address] [place], gestation of [place], [address], [id number], 120, [place], [place], [address]. tel: [place], tel: 55449, 8683221 [place]. tel: [phone] Ailyn [place] Partial Placenta Mar-0 Sobbing Referring In Womens Previa Nos Or [place]. Provider: Darryl HALL, W/out Hemorrhage, 8 700 [address] PO Box [facility], 1522, TrimesterEncntr Center [address] [place], for suprvsn of Drive [place], normal first Suite [address], [id number], preg, second 120, [place], [place] [id number] [place], [address]. tel: gestation of [place], tel: 22643, [id number] [place]. tel: [phone] Ailyn Solorzanor for Mar-0 Sobbing Referring In Womens Ultrasound suprvsn of normal [place]. Provider: Darryl HALL, first preg, 8 700 [place] PO Box [facility] , 1522, [id number] weeks Center [address] [place], gestation of [facility] [place], Suite [address], [id number], 120, [place], [place], [address]. tel: [place], tel:[phone] 44987, [id number] [place]. tel: [phone] Ailyn [place] Encntr for Feb-0 Sobbing Referring In Womens suprvsn of normal [place]. Provider: Darryl HALL, first preg, 8 700 [address] PO Box [facility] , 1522, [id number] weeks Center [address] [place], gestation of [facility] [place], Suite [address], [id number], 120, [place], [place], [address]. tel: [place], tel: 15220, 5746408 . tel: [phone] Associates Kumar Encntr screen for Eladio-0 Sobbing Referring In Womens infections w sexl 4-201 [place]. Provider: Darryl HALL, mode of 8 700 [address] PO Box transmissEncounte [facility], 1522, r for screening Center [address] [place], for oth Drive, [facility], infec/parastc [address], [id number], diseasesEncntr [facility], [facility] [place], [address]. tel: normal first [place], tel: preg, first [address], [id number] trimesterEncounte [place]. r for tel: screening of [phone] weeks gestation of Associates Kumar Encntr for Dec-0 Augustus Referring In Womens suprvsn of normal 4-201 [place]. Provider: Darryl HALL, preg, unsp, first 7 700 [address] PO Box [facility], 1522, Center [address], [place], 120, [address], [id number], [facility], [place], [address]. tel: [phone] tel: , [place]. [id number] tel: [phone] Family History Family Member Diagnosis Age At Onset Father Hypertension Paternal Grandmother Breast Cancer Paternal Grandfather Stroke Mother Hypertension Immunizations Vaccine Date Status Comments Tdap completed Source: New Immunization Record Influenza, injectable, completed Source: Other Provider quadrivalent, preservative free, 3 yrs or older Payers Payer name Insurance type Covered green party ID Authorization(s) [facility] [id number] [facility] - [id number] Medicaid [facility] [id number] Social History Type Description Quantity Date Captured Alcohol Use Details No Caffeine Use Details Unknown Tobacco Use Status Smoking Status Former smoker Vital Signs Date / Height Weight BMI Pulse Blood Temperature Respiratory Body Head BMI Time: Rate Pressure Rate Surface Circumference percentile Area 191.00 31.7 lbs 8 1:37 kg/m PM eter (2) 31. 8 1:43 kg/m PM eter (2) 191. 31.7 118/68 -2018 lbs 8 mm[Hg] 1:42 kg/m PM eter (2) Chief Complaint And Reason For Visit Unknown Chief Complaint And Reason For Visit Reason For Referral Reason For Referral Unknown Plan Of Care Date Type Action Status Appointment Maria Luisa Mitchell BOOKED Future Order: Radiology Order Ultrasound, OB Limited ([id number]) Ordered Future Order: Radiology Order Complete OB Ultrasound > 14 Weeks Ordered ([id number]) Date Type Problem Goal Intervention Status Start [...]
--- OUTSIDE RECORDS SUMMARY | 2018-06-20 16:12 | External Medical Summary | Continuity of Care Document ---
:1996 Author Organization [facility] Address [address] [place], [place] [id number] Phone Care Team Providers Name Role Phone Kaylah Ruiz DO Unavailable Unavailable Allergies, Adverse Reactions, Alerts Substance Reaction Severity Status tetracycline Unknown Active Medications Medication Instructions Dosage Effective Dates (start - stop) Status Comments Drug Treatment Unknown Problems Condition Effective Dates (start - stop) Clinical Status Encntr screen for infections w sexl - [...] Team Description For Visit Members Ailyn [place] Eladio-0 Sobbing In Womens 8-201 [place]. Health ISABEL, 8 700 [address], [place], [place], [id number], 120, [place], tel:+[phone] [place], [phone], [place]. tel:[phone] Ailyn [place] Encntr screen for Nov-0 Sobbing Referring In Womens infections w sex 4-201 [place]. Provider: Health ISABEL, mode of 8 700 Kaylah PO Box transmissEncounter Medical Joseph Ingram, 1522, for screening for Center [address], [address]fe[address]ast[address], [facility], diseasesEncntr for [address], , suprvsn of normal 120, [address], first preg, [place], [address]. tel: trimesterEncounter [place], tel: for [phone], [phone] screening of [place]. [id number] weeks tel: gestation of [phone] Associates [place] [facility] for supr[facility]n Dec-0 Augustus Referring In Womens of normal preg, 4-201 [place]. Provider: Health ISABEL, gaby, first 7 700 Kaylah PO Box trimester Medical [facility], 1522, Center [address] [place], [facility], 120, [address], , Kumar [address], [place], [address]. tel: [phone] tel: , [place]. [id number] tel: [phone] Family History Family Member Diagnosis Age At Onset Father Hypertension Paternal Grandmother Breast Cancer Paternal Grandfather Stroke Mother Hypertension Immunizations Vaccine Date Status Comments Influenza, injectable, quadrivalent, completed Source: Other Provider preservative free, 3 yrs or older Payers Payer name Insurance type Covered democrat ID Authorization(s) [facility] [id number] Social History Type Description Quantity Date Captured [...] Appointment Maria Luisa Goodman BOOKED Future Order: Lab Order Pap Smear With HPV Reflex If ASCUS Ordered ([id number]), Collected on: Date Type Problem Goal Intervention Status Start [...]
--- OUTSIDE RECORDS SUMMARY | 2018-06-20 16:12 | External Medical Summary | Continuity of Care Document ---
:1996 Author Organization [facility] Address [address] [place], [place] [phone] Phone Care Team Providers Name Role Phone Kaylah Ruiz DO Unavailable Unavailable Allergies, Adverse Reactions, Alerts Substance Reaction Severity Status tetracycline Unknown Active Medications Medication Instructions Dosage Effective Dates (start - stop) Status Comments Drug Treatment Unknown Problems Condition Effective Dates (start - stop) Clinical Status Encntr for suprvsn of normal preg, unsp, first trimester Procedures Procedure Date Office/outpatient visit,[facility] Results Test Name Date and Time Measure Units Reference Range Abnormal Flag Comments Unknown Advance Directives Directive Yes / No Effective Date File Name Unknown Encounters Encounter Practice Location Reason(s) Diagnoses Date Provider Care Team Description For Visit Members Office/outpati [facility] [place] early OB Encntr for Augustus Referring ent visit,[facility] with unsure suprvsn of [place]. Provider: kaden HALL PO Box dates normal [address] 1522, (chief preg, unsp, Medical Joseph Ingram [place], complaint) Formerly [facility] , [address], [place] trimester [address]ude [address], [address], tel:[phone] [place], [address] [place], [address]. [id number], tel:[phone] tel:[phone] Family History Family Member Diagnosis Age At Onset Father Hypertension Paternal Grandmother Breast Cancer Paternal Grandfather Stroke Mother Hypertension Immunizations Vaccine Date Status Comments Unknown Payers Payer name Insurance type Covered constitution party ID Authorization(s) HAYLEE TREJO [id number] Social History Type Description Quantity Date Captured Alcohol Use Details No Caffeine Use Details combo Tobacco Use Status Ex-cigarette smoker Smoking Status Former smoker Smoking Tobacco Use Cigarette: Age Stopped: 22, Years Used 4 Cigarette: 1 Packs per day, Pack Year: 4 Details Vital Signs Date / Height Weight BMI Pulse Blood Temperature Respiratory Body Head BMI Time: Rate Pressure Rate Surface Circumference percentile Area 65.50 173.60 28.4 98 124 in lbs 5 /min mm[Hg] 1:30 kg/m PM eter (2) Chief Complaint And Reason For Visit Most recent encounter only, dated '10/25/2017 13:30'. early OB with unsure dates (chief complaint). Description: New pt . + test on . Has been having breast tenderness and nausea. Unsure of LMP. Think swas the first august but really not sure. Unplanned , but excited. No bleeding or spotting. No abdominal or pelvic pain. Plansto see Dr Whiteside Reason For Referral Reason For Referral Unknown Plan Of Care Date Type Action Status Appointment Maria Luisa Goodman BOOKED Date Type Problem Goal Intervention Status Start Date Unknown. History Of Present Illness Encounter Date Complaint History Of Present Illness early OB with unsure dates New pt . + test on 10/14. Has been having breast tenderness and nausea. Unsure of LMP. Think swas the first august but really not sure. Unplanned , but excited. No bleeding or spotting. No abdominal or pelvic pain. Plans to see Dr Whiteside Functional Status Encounter Date Functional Assessment Cognitive Assessment Unknown Medications Administered Medication Instructions Dosage Effective Dates (start - stop) Status Comments Drug Treatment Unknown Instructions Date Instruction Additional Information Unknown
--- OUTSIDE RECORDS SUMMARY | 2018-06-20 16:12 | External Medical Summary | Continuity of Care Document ---
:1996 Author Organization [facility] Address [address] [place], [place] [phone] Phone Care Team Providers Name Role Phone [...] For Visit Members Ailyn [place] Encntr for Apr- Sobbing Referring In Womens suprvsn of normal 7-201 [place]. Provider: Darryl HALL, first preg, third 8 700 Kaylah PO Box [id number] weeks [facility], 1522, gestation of [address], [address], [id number], 120, [place], [place], [address]. tel:+ [place], tel:[phone], [id number] [place]. tel: [phone] Ailyn [place] Encntr for Sobbing Referring In Womens suprvsn of normal 4-201 [place]. Provider: Darryl HALL, first preg, third 8 700 Kaylah [address] [id number] weeks [facility], 1522, gestation of [address], [address], [id number], 120, [place], [place], [address]. tel:+ [place], tel:[phone], [id number] . tel: [phone] Ailyn [place] Encntr for March- Sobbing Referring In Womens suprvsn of normal 0-201 [place]. Provider: Darryl HALL, first preg, third 8 700 Kaylah [address] [id number] weeks [facility], 1522, gestation of [address], [address], [id number], 120, [place], [place], [address]. tel: [place], tel: [phone], [id number] [place]. tel:[phone] Ailyn [place] Encntr for Apr-2 Sobbing Referring In Womens suprvsn of normal 6-201 [place]. Provider: Darryl HALL, first preg, 8 700 Kaylah PO Box [facility], 1522, [email or web address] weeks Center [address] [place], gestation of [facility], [address], [id number], 120, [place], [place], [address]. tel: [place], tel: [phone], [id number] [place]. tel: [phone] Ailyn [place] Encntr for Mar-2 Sobbing Referring In Womens suprvsn of normal 9-201 [place]. Provider: Darryl HALL, first preg, 8 700 Kaylah PO Box [facility], 1522, weeks Center [address] [place], gestation of [facility], [address], [id number], 120, [place], [place], [address]. tel: [place], tel: [phone], [id number] [place]. tel: [phone] Ailyn [place] Partial Placenta Mar-2 Sobbing Referring In Womens Ultrasound Previa Nos Or 9-201 [place]. Provider: Darryl HALL, W/out Hemorrhage, 8 700 Kaylah PO Box [facility], 1522, [id number] weeks Center [address] [place], gestation of [facility] [place], [address], [id number], 120, [place], [place], [address]. tel: [place], tel: [phone], [id number] [place]. tel:[phone] Ailyn [place] Partial Placenta Mar-0 Sobbing Referring In Womens Previa Nos Or 1-201 [place]. Provider: Darryl HALL, W/out Hemorrhage, 8 700 Kaylah PO Box [facility], 1522, TrimesterEncntr Center [address] [place], for suprvsn of [facility], normal first [address], [id number], preg, second 120, [place], [place] [id number] [place], [address]. tel: gestation of [place], tel: [phone], [phone] [place]. tel: [phone] Ailyn Ontiverosntr for Mar-0 Sobbing Referring In Womens Ultrasound suprvsn of normal 201 [place]. Provider: Darryl HALL, first preg, [facility], [id number] weeks Center [address] [place], gestation of [facility], [address], [id number], 120, [place], [place], [address]. tel: [place], tel: [phone], [phone] [place]. tel: [phone] Ailyn Ontiverosntr for Feb-0 Sobbing Referring In Womens suprvsn of normal [place]. Provider: Darryl HALL, first preg, [facility], [facility] Center [address] [place], gestation of [facility], [facility], [address], [id number], 120, [place], [place], [address]. tel: [place], tel: [phone], [phone] [place]. tel: [phone] Ailyn [place] Encgennar screen for Eladio-0 Sobbing Referring In Womens infections w sexl 4-201 [place]. Provider: Darryl HALL, mode of 8 700 [address]lah PO Box [facility]ounte [facility], [facility], r for screening Center [address] [place], for oth [facility] [place], infec/parastc [address], , diseasesEncntr 120, [place], [place], [address]. tel: normal first [place], tel:+ preg, first [phone], [phone] trimesterEncounte [place]. r for tel: screening of [phone] [id number] weeks gestation of Associates Kumar Ontiverosntr for Augustus Referring In Womens suprvsn of normal 4-201 [place]. Provider: Darryl HALL, nicolás, unsp, first 7 700 Kaylah PO Box trimester Medical Ruiz K, 1522, Center [address] [place], [place] [place], 120, [address], [id number], [place], [place], [address]. tel: [phone] tel: [phone] , [place]. [id number] tel: [phone] Family History Family Member Diagnosis Age At Onset Father Hypertension Paternal Grandmother Breast Cancer Paternal Grandfather Stroke Mother Hypertension Immunizations Vaccine Date Status Comments Tdap completed Source: New Immunization Record Influenza, injectable, completed Source: Other Provider quadrivalent, preservative free, 3 yrs or older Payers Payer name Insurance type Covered republican ID Authorization(s) [facility] [id number] [facility] [id number] Medicaid [facility] [id number] Social History Type Description Quantity Date Captured Alcohol Use Details No Caffeine Use Details Unknown Tobacco Use Status Smoking Status Former smoker Vital Signs Date / Height Weight BMI Pulse Blood Temperature Respiratory Body Head BMI Time: Rate Pressure Rate Surface Circumference percentile Area 0 2:12 kg/m PM eter (2) 188.30 31.3 128/86 2018 lbs 3 mm[Hg] 2:15 kg/m PM eter (2) Chief Complaint And Reason For Visit Unknown Chief Complaint And Reason For Visit Reason For Referral Reason For Referral Unknown Plan Of Care Date Type Action Status Appointment Maria Luisa Mitchell BOOKED Future Order: Radiology Order Ultrasound, OB Limited ([id number]) Ordered Future Order: Radiology Order Complete OB Ultrasound > 14 Weeks Ordered ([id number]) Date Type Problem Goal Intervention Status Start [...]
--- OUTSIDE RECORDS SUMMARY | 2018-06-20 16:12 | External Medical Summary | Continuity of Care Document ---
:1996 Author Organization [facility] Address [address] [place], [place] [id number] Phone Care Team Providers Name Role Phone Kaylah Ruiz DO Unavailable Unavailable Allergies, Adverse Reactions, Alerts Substance Reaction Severity Status tetracycline Unknown Active Medications Medication Instructions Dosage Effective Dates (start - stop) Status Comments Drug Treatment Unknown Problems Condition Effective Dates (start - stop) Clinical Status Encntr for suprvsn of normal preg, unsp, first trimester Procedures Procedure Date Office/outpatient visit,[facility] Results Test Name Date and Time Measure Units Reference Range Abnormal Flag Comments Unknown Advance Directives Directive Yes / No Effective Date File Name Unknown Encounters Encounter Practice Location Reason(s) Diagnoses Date Provider Care Team Description For Visit Members Office/outpati [facility] [place] early OB Encntr for Augustus Referring ent visit,[facility] with unsure suprvsn of [place]. Provider: kaden HALL PO Box dates normal [address] 1522, (chief preg, unsp, Medical Joseph Ingram [place], complaint) [facility] , [address], [place] trimester Jean[place]Claude [address], [address], tel:[phone] Portia [place], [address] [place], [address]. [id number], tel:[phone] tel:[phone] Family History Family Member Diagnosis Age At Onset Father Hypertension Paternal Grandmother Breast Cancer Paternal Grandfather Stroke Mother Hypertension Immunizations Vaccine Date Status Comments Unknown Payers Payer name Insurance type Covered libertarian ID Authorization(s) HAYLEE TREJO [id number] Social History Type Description Quantity Date Captured [...] Date Type Action Status Appointment Maria Luisa Goomdan BOOKED Date Type Problem Goal Intervention Status [...]
--- OUTSIDE RECORDS SUMMARY | 2018-06-20 16:12 | External Medical Summary | Continuity of Care Document ---
:1996 Author Organization [facility] Address [address] [place], [place] [phone] Phone Care Team Providers Name Role Phone [...] preg, unsp, first trimester Procedures Procedure Date Initial OB Visit No Charge OB Prepayment Agreement Cult, bactr, yuriy colonycnt, urine Infct Antigen, HIV-1/2 Antigen/Antibodies 4th Gen Obstetric profile Venpnctr fngr/heel/ear stick routne Infct antign, chlamydia trac, ampl Neisseria Gonorrhoeae, Amplification Cult, bactr, ident isolate, urine Cult bactr, aerobic, addl methods Results Test Name Date and Time Measure Units Reference Range Abnormal Flag Comments Panel Description: OBSTETRIC PANEL WHITE BLOOD CELL 9.3 Thousand/uL 3.8-10.8 N COUNT 15:40:00 RED BLOOD CELL 4.47 Million/uL 3.80-5.10 N COUNT 15:40:00 HEMOGLOBIN 13.3 g/dL 11.7-15.5 N 15:40:00 HEMATOCRIT 38.4 % 35.0-45.0 N 15:40:00 MCV 85.9 fL 80.0-100.0 N 15:40:00 MCH 29.8 pg 27.0-33.0 N 15:40:00 MCHC 34.6 g/dL 32.0-36.0 N 15:40:00 RDW 11.8 % 11.0-15.0 N 15:40:00 PLATELET COUNT 299 Thousand/uL 140-400 N 15:40:00 MPV 10.4 fL 7.5-12.5 N 15:40:00 ABSOLUTE 6147 cells/uL 7003-7801 N NEUTROPHILS 15:40:00 ABSOLUTE 2334 cells/uL 850-3900 N LYMPHOCYTES 15:40:00 ABSOLUTE 632 cells/uL 200-950 N MONOCYTES 15:40:00 ABSOLUTE 140 cells/uL 15-500 N EOSINOPHILS 15:40:00 ABSOLUTE 47 cells/uL 0-200 N BASOPHILS 15:40:00 NEUTROPHILS 66.1 % N 15:40:00 LYMPHOCYTES 25.1 % N 15:40:00 MONOCYTES 6.8 % N 15:40:00 EOSINOPHILS 1.5 % N 15:40:00 BASOPHILS 0.5 % N 15:40:00 ANTIBODY SCREEN, NO ANTIBODIES N RBC W/REFL ID, 15:40:00 DETECTED Reference range TITER AND AG No antibodies detected This assay is a screening test for the detection of red blood cell antibodies. The test is not to be used for pretransfusion screening or for the medical management of an alloimmunized . ABO GROUP O 15:40:00 RH TYPE RH(D) 15:40:00 POSITIVE RPR (DX) W/REFL NON-REACTIVE NON-REACTIV N TITER AND 15:40:00 E CONFIRMATORY TESTING HEPATITIS B NON-REACTIVE NON-REACTIV N SURFACE ANTIGEN 15:40:00 E RUBELLA ANTIBODY 16.20 index N Index (IGG) 15:40:00 Interpretation ----- <0.90 Not consistent with Immunity 0.90-0.99 Equivocal > or=1.00 Consistent with Immunity The presence of rubella IgG antibody suggests immunization or past or current infection withrubella virus.Test performed at [facility] [facility] [place] [address]Fectwsf r: MOISÉS PAULA DO,MPH Panel Description: HIV 1/2 ANTIGEN/ANTIBODY,FOURTH GENERATION W/RFL HIV NON-REACTIVE NON-REACTIVE N HIV-1 antigen and HIV-1/HIV- 2 antibodies were AG/AB, 15:40:00 notdetected. There is no laboratory evidence of 4TH GEN HIVinfection. PLEASE NOTE: This information has been disclosed toyou from records whose confidentiality may beprotected by state law. If your state requires suchprotection, then the state law prohibits you frommaking any further disclosure of the informationwithout the specific written consent of the personto whom it pertains, or as otherwise permitted by law.A general authorization for the release of medical orother information is NOT sufficient for this purpose. For additional information please refer tohttp://education.[employer]/faq/GHW928(This link is being provided for informational/educational purposes only.) The performance of this assay has not been clinicallyvalidated in patients less than 2 years old. REPORT COMMENT:FASTING:NOTest performed at [employer] [id number] [place] [address]Ceuoryqk: MOISÉS PAULA DO,MPH Panel Description: Bacteria identified in Urine by Culture CULTURE, URINE, SEE NOTE A CULTURE, URINE, ROUTINE MICRO ROUTINE 15:42:00 NUMBER: [id number] TEST STATUS: FINAL SPECIMEN SOURCE: URINE SPECIMEN QUALITY: ADEQUATE RESULT: 1,000-10,000 CFU/mL of Group B Streptococcus isolated Beta-hemolytic Streptococci are predictably susceptible to penicillin and other beta-lactams. Susceptibility testing not routinely performed. COMMENT: Erythromycin and clindamycin are not recommended for treatment of urinary tract infections, but clindamycin may be useful for treatment of rectovaginal colonization or infection. Any amount of group B Streptococcus in urine specimens obtained from females is a marker of genital tract colonization. If this patient is , please refer to ACOG guidelines for appropriate screening and management of women. COMMENT: Additional organism(s) less than 10,000 CFU/mL isolated. These organisms, commonly found on external and internal genitalia, are considered colonizers. No further testing performed.REPORT COMMENT:RFASTING:UNKNOWNTest performed at [employer] [address] [address]Eagebmnv: MOISÉS PAULA DO,MPH Panel Description: CHLAMYDIA/N. GONORRHOEAE RNA, TMA CHLAMYDIA NOT DETECTED NOT DETECTED N TRACHOMATIS RNA, 15:48:00 TMA NEISSERIA NOT DETECTED NOT DETECTED N GONORRHOEAE RNA, 15:48:00 TMA [id number] SEE NOTE This test was 15:48:00 performed using the APTIMA COMBO2 Assay([employer] The analytical performance characteristics of this assay, when used to test SurePath specimens havebeen determined by [employer]. REPORT COMMENT:FASTING:UNKNO WNTest performed at [employer] [address] [address]Woyjremm: MOISÉS PAULA DO,MPH Advance Directives Directive Yes / No Effective Date File Name Unknown Encounters Encounter Practice Location Reason(s) Diagnoses Date Provider Care Team Description For Visit Members Ailyn Turner screen for Sobbing Referring In Womens infections w sexl 4-201 [place]. Provider: Count includes the [facility], mode of 8 700 Kaylah PO Box [facility], 1522, for screening for Center [address], [facility] infe[address], [place], diseasesEncntr for [address], [id number], suprvsn of normal 120, [place], [place] first preg, first [place], [address]. [phone] tel: for [phone], [phone] screening of [place]. weeks tel: gestation of [phone] Associates Kumar Turner for suprvsn Dec-0 Augustus Referring In Womens of normal preg, 4-201 [place]. Provider: Darryl HALL, gaby, first 7 700 Kaylah PO Box trimester Medical [facility], 1522, Center [address] [place], [place] [place], 120, [address], [id number], [place], [place], [address]. tel: [phone] tel: , [place]. [id number] tel: [phone] Family History Family Member Diagnosis Age At Onset Father Hypertension Paternal Grandmother Breast Cancer Paternal Grandfather Stroke Mother Hypertension Immunizations Vaccine Date Status Comments Influenza, injectable, quadrivalent, completed Source: Other Provider preservative free, 3 yrs or older Payers Payer name Insurance type Covered green party ID Authorization(s) [facility] [id number] Social History Type Description Quantity Date Captured [...] Rate Pressure Rate Surface Circumference percentile Area 179.10 29.8 139/86 -2018 lbs 0 mm[Hg] 3:02 kg/m PM eter (2) Chief Complaint And [...]
--- OUTSIDE RECORDS SUMMARY | 2018-06-20 16:12 | External Medical Summary | Continuity of Care Document ---
:1996 Author Organization [facility] Address [address] [place], [place] [phone] Phone Care Team Providers Name Role Phone [...] Members Ailyn [place] Eladio-0 Sobbing In Womens 9-201 [place]. Health ISABEL, 8 700 [address], [place], [place], [address] [id number], 120, [place] Kumar, tel:+[phone] [place], 113[address], [place]. tel:[phone] Ailyn [place] Encntr screen for Nov-0 Sobbing Referring In Womens infections w sexl 4-201 [place]. Provider: Health ISABEL, mode of 8 700 Kaylah PO Box transmissEncounter Medical Joseph Ingram, 1522, for screening for Center [address] [place], [address]th infec/parast[address], [facility], diseasesEncntr for [address], , suprvsn of normal 120, [place], first preg, [place], [address]. tel: trimesterEncounter [place], tel: [place] [phone], [phone] screening of [place]. [id number] weeks tel: gestation of [phone] Associates [place] [facility] for suprvsn Dec-0 Augustus Referring In Womens of normal preg, 4-201 [place]. Provider: Health ISABEL, gaby, first 7 700 Kaylah PO Box trimester Medical [facility], 1522, Center [address] [place], [facility], 120, [address], , Kumar [place], [place], [address]. tel: [phone] tel: , [place]. [id number] tel: [phone] Family History Family Member Diagnosis Age At Onset Father Hypertension Paternal Grandmother Breast Cancer Paternal Grandfather Stroke Mother Hypertension Immunizations Vaccine Date Status Comments Influenza, injectable, quadrivalent, completed Source: Other Provider preservative free, 3 yrs or older Payers Payer name Insurance type Covered green party ID Authorization(s) [facility] [id number] Social History Type Description Quantity Date Captured [...]
[2018-06-20 16:31] VITALS: BMI 32.9
[2018-06-21] MEDS ORDERED: D5LR 1,000 ML IV PRN (05:00)
[2018-06-21] MEDS ORDERED: AMPICILLIN 2 GM in NS 100 ML IV ONE (05:00)
[2018-06-21] MEDS ORDERED: OXYTOCIN DRIP 30 UNIT/500 ML ML IV PRN (05:00)
[2018-06-21] MEDS: LR 1,000 ML IV PRN ×3 (05:10→07:35)
[2018-06-21] MEDS ORDERED: ROPIVACAINE 1% 10MG/ML INJ 200 MG, SUFentanil 50 MCG in NS 100 ML EPI PRN (06:19)
[2018-06-21] MEDS ORDERED: ONDANSETRON 4 MG/2 ML INJECTION IVP PRN (06:19)
[2018-06-21] MEDS ORDERED: NALOXONE 0.4 MG/ML INJECTION IVP PRN (06:19)
[2018-06-21] MEDS ORDERED: DiphenhydrAMINE 50 MG/ML INJECTION IVP PRN (06:19)
--- NOTE | 2018-06-21 06:19 | Anesthesia Preoperative Report ---
Anesthesia Epidural/Spinal Rec - Date and Time Date: 06/21/18 Procedure: Labor Epidural Plan: Epidural - Vital Signs Vital Signs: Temperature 98.2 F 06/20/18 16:20 Pulse Rate 107 H 06/20/18 16:20 Respiratory Rate 16 06/20/18 16:20 Blood Pressure 128/82 06/20/18 16:20 Pulse Oximetry 98 06/20/18 16:20 /Para: P:0 - Medictaions & Allergies Inpatient Medications: Current Medications Acetaminophen (Tylenol) 500 - 1,000 mg PO Q4H PRN PRN Reason: Pain Last Admin: 06/21/18 02:57 Dose: 1,000 mg Al Hydroxide/Mg Hydroxide (Maalox Plus) 30 ml PO Q3H PRN PRN Reason: Indigestion Calcium Carbonate (Tums) 500 - 1,000 mg PO Q2H PRN PRN Reason: Indigestion Carboprost Tromethamine (Hemabate) 250 mcg IM O PRN PRN Reason: .Downtime Lactated Ringer's (Lactated Ringers) 1,000 mls @ 999 mls/hr IV .Q1H1M PRN Last Admin: 06/21/18 05:10 Dose: 999 mls/hr Oxytocin (Pitocin Drip) 30 unit in 500 mls @ 2 mls/hr IV .Q24H PRN; Protocol PRN Reason: Induction/Augmentation Last Admin: 06/21/18 05:10 Dose: 2 mls/hr Dextrose/Lactated Ringer's (Dextrose 5%-Lactated Ringers) 1,000 mls @ 125 mls/ hr IV .Q8H PRN PRN Reason: Labor Last Admin: 06/21/18 05:11 Dose: 125 mls/hr Ampicillin Sodium 1 gm/ Sodium (Chloride) 100 mls @ 200 mls/hr IV Q4H WANDA Methylergonovine Maleate (Methergine) 0.2 mg IM O PRN Misoprostol (Cytotec) 800 mcg GA ONCE PRN Sodium Chloride (Iv Flush) 10 - 80 ml IV PRN PRN PRN Reason: Flushing Sodium Chloride (Iv Flush) 10 - 80 ml IV PRN PRN PRN Reason: Flushing Allergies/Adverse Reactions: Allergies Allergy/AdvReac Type Severity Reaction Status Date / Time tetracycline Allergy Hives Verified 05/23/18 11:38 - Home Medications Home Medications: Home Medications Medication Instructions Recorded Confirmed Type Vit Calc,Iron,Folic 1 each PO DAILY 05/23/18 05/23/18 History [ Vitamins] - Medical History Respiratory: Reports: Asthma Other History: Reports: Now - Surgical History Anesthesia Reactions: None Hx Family Anesthesia Reaction: No History of Motion Sickness: No - Social History Smoking Status: Former smoker Second Hand Exposure: No Hx Chewing Tobacco Use: No - Pertinent Findings Lab Data: CBC and BMP 06/20/18 16:19 EKG Rhythm: Normal Sinus Rhythm - Physical Exam Respiratory Exam: lungs clear Cardiovascular Exam: regular rate and rhythm, no murmur - Airway Assessment Mallampati Score: II TMD: 3 Fingerbreadths Neck Extension: good Overall Assessment: no airway concerns - ASA ASA Score: 2 - Discussion Discussion: Discussed risks/options/alternatives of anesthesia and questions answered. Patient consents. Nursing pain assessment noted. Anesthesia Discussion: spouse, family member Attestation Statement: Prior to the delivery of any anesthetic medication, I examined the patient, developed the plan, obtained the patient's consent and discussed the risk and benefits of the procedure with the patient/guardian.
[2018-06-21] MEDS: AMPICILLIN 1 GM in NS 100 ML IV SCH ×2 (08:59→13:01)
--- NOTE | 2018-06-21 09:03 | OB/GYN Progress Note ---
- Pain Control Pain control: Epidural - Pelvic Exam Dilation (cm): 5 Effacement (%): 100 station: -2 Amniotic membrane status: Ruptured - Contractions Monitor mode: Internal Contraction frequency: 4 Contraction intensity: Strong/Firm - Status status: Category ll Comments: Pt had variable decels after epidural resolved, Pitocin restarted pt had recurrent decels pit DC'd [facility] place will give pt adequate time to recover and restart pit with Cat 1 strip will tritriate to adequate MVUs, patient making mild cervical change at this time. Discussed possibility of PLTCS - Assessment and Plan Pitocin rate (mU/min): 0 Assessment: induction ongoing Plan: continuous present management
[2018-06-21] MEDS ORDERED: DiphenhydrAMINE 25 MG CAPSULE PO PRN (13:58)
[2018-06-21] MEDS ORDERED: SALINE FLUSH 10ml SYRINGE IV PRN (13:58)
[2018-06-21] MEDS ORDERED: ACETAMINOPHEN 500 MG TABLET PO PRN (13:58)
[2018-06-21] MEDS ORDERED: HYDROCORTISONE 2.5% CREAM 30gm RECTALLY PRN (13:58)
[2018-06-21] MEDS ORDERED: MAG-AL + SIM ORAL LIQUID 30ml PO PRN (13:58)
[2018-06-21] MEDS ORDERED: CALCIUM CARBONATE Chewable 500mg TABLET PO PRN (13:58)
[2018-06-21] MEDS ORDERED: OXYTOCIN DRIP 30 UNIT/500 ML ML IV SCH (14:00)
[2018-06-21] MEDS: Oxycodone/Acetaminophen 5/325 1 TAB PO PRN ×2 (14:59→21:53)
[2018-06-21] MEDS: IBUPROFEN 800 MG TABLET PO PRN ×2 (14:59→21:53)
--- NOTE | 2018-06-21 20:58 | Anesthesia Postoperative Note ---
- Date and Time Date: 06/21/18 Time: 20:58 - Status Patient Participated in Evaluation: Patient Participated in Person Vital Signs: Temperature 98.6 F 06/21/18 17:34 Pulse Rate 93 06/21/18 17:34 Respiratory Rate 18 06/21/18 17:34 Blood Pressure 115/66 06/21/18 17:34 Pulse Oximetry 98 06/21/18 17:34 Respiratory Function: Airway Patent Mental Status: Alert and Oriented Pain Intensity: 0 Hydration: Taking PO Fluids Nausea/Vomiting: None Complications During Recover: None Apparent - Follow-Up Instructions Instructions: Per Surgeon
[2018-06-22 04:43] VITALS: RESP 16; O2SAT 99
--- NOTE | 2018-06-22 08:11 | OB/GYN Progress Note ---
OB-PP Progress Note - General PPD1 Maternal Group B Strep: Positive - Subjective Date: 06/22/18 Lochia: Moderate Pain: controlled Voiding: voiding Nausea or Vomiting Present: No - Objective Vital Signs: Last Vital Signs Temp 98.1 F 06/22/18 04:15 Pulse 93 06/22/18 04:15 Resp 16 06/22/18 04:15 BP 107/65 06/22/18 04:15 Pulse Ox 99 06/22/18 04:15 Urine Output: good General: alert and oriented Extremities: non-tender Laboratory: Laboratory Results - last 24 hr 06/21/18 06/21/18 13:42 13:43 Cord ABG pH 7.206 Cord ABG pCO2 59.4 Cord ABG pO2 13.4 Cord ABG HCO3 23.6 Cord ABG Total CO2 25.4 Cord ABG Base Excess -5.9 Cord ABG O2 Sat 11.1 Cord VBG pH 7.263 Cord VBG pCO2 50.8 H Cord VBG pO2 13.2 L Cord VBG HCO3 23.0 Cord VBG Total CO2 24.5 Cord VBG Base Excess -4.9 Cord VBG O2 Sat 12.0 - Assessment Assessment: , GBS positive - Plan Plan: routine care (plan dismissal tomorrow.)
[2018-06-22] MEDS ORDERED: DOCUSATE CALCIUM 240 MG CAPSULE PO SCH (09:00)
[2018-06-22] MEDS: IBUPROFEN 800 MG TABLET PO PRN ×2 (11:41→20:24)
--- NOTE | 2018-06-22 12:18 | Progress Note ---
OB PP Progress Note Free Text - Date Date: 06/22/18 - Progress Note Progress Note: vss af no c/o doing well q&a
[2018-06-23] MEDS: IBUPROFEN 800 MG TABLET PO PRN (07:26)
[2018-06-23 07:56] VITALS: BP 131/80; PULSE 93; TEMP 96.5
--- NOTE | 2018-06-23 08:43 | OB/GYN Progress Note ---
OB-PP Progress Note - General PPD2 Maternal Group B Strep: Positive Maternal Rh: positive Maternal Rubella Status: Immune - Subjective Date: 06/23/18 Lochia: Minimal Pain: controlled Voiding: voiding Nausea or Vomiting Present: No - Objective Vital Signs: Last Vital Signs Temp 96.5 F L 06/23/18 07:40 Pulse 93 06/23/18 07:40 Resp 16 06/23/18 07:40 BP 131/80 06/23/18 07:40 Pulse Ox 99 06/22/18 15:57 Urine Output: good General: alert and oriented Cardiovascular: regular rate,rhythm Respiratory: non-labored Abdomen: fundus firm Extremities: non-tender - Assessment Assessment: SP, VAVD - Plan Plan: routine care, discharge home
--- NOTE | 2018-06-23 10:25 | Labor and Delivery Note ---
DATE OF DELIVERY 06/21/2018 NARRATIVE There was a vacuum-assisted vaginal delivery over intact perineum of a viable female infant, named Ely, with Apgars of 9/9 and a weight of 3395 g. She had epidural anesthesia. Terminal meconium was noted. There was no nuchal cord. A three-vessel cord was noted. Spontaneous delivery of the placenta. She had a second-degree midline perineal, a left vaginal sidewall laceration and bilateral periurethrals that were repaired without difficulty. Estimated blood loss was 450 mL. This was a G1, P0 with EDC of 06/15/2018 who underwent induction of labor and cervical ripening for postdates. She had a Ramirez bulb for cervical ripening which was placed at approximately 1700 hours on 06/20/2018. Ramirez bulb came out sometime during the middle of the night. Pitocin was started on 5 a.m. She got to a maximum dose of 6 on the Pitocin during her labor. She did have spontaneous rupture of membranes with clear fluid during her induction. Pitocin was discontinued twice secondary to late decelerations which resolved with resuscitative measures. She then progressed from the time the Ramirez bulb came out which was noted to be 3 cm and made good progress and was delivered 1 p.m. in the afternoon. The vacuum-assisted vaginal delivery was done for prolonged decelerations and heart tones in the 90s during the second stage of labor. The patient was noted to be complete and +3 station at that time. There was maximum pressure of 50 mmHg on the vacuum and the patient delivered with one contraction. MTDD
== END 2018-06-23 15:10 | disposition home or self-care (01) | DRG 775 ==
LOC: MC 06-20 16:05
PROVIDERS: ADMIT Obstetrics & Gynecology; ATTEND Obstetrics & Gynecology